=== PATIENT | female | born 1985 | race Two or more races ===

== ENCOUNTER 2018-02-10 18:31 | Emergency (ER) | payer OTHER ==
[~2018-02-10] VITALS: Ht 154.9 cm; Wt 108.9 kg
[2018-02-10 19:00] VITALS: BP 126/84
[2018-02-10] MEDS ORDERED: ZITHROMAX250 MG ORAL (19:31)
[2018-02-10] MEDS ORDERED: IBUPROFEN600 MG ORAL (19:31)
--- NOTE | 2018-02-10 20:57 | Emergency Room Report ---
History of Present Illness General Chief Complaint: Flu Like Symptoms Source: Patient Present Illness HPI The patient is a 32-year-old female presenting for fever, chills, sore throat, cough, fatigue which began this morning. She states that she has used Tylenol which did not help. She states that she had the flu shot last week. 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 She denies any other symptoms including nausea, vomiting, shortness of breath, wheezing, neck pain or stiffness, rash, abdominal pain Allergies: Coded Allergies: No Known Allergies (Unverified , 02/10/18) Patient History Past Medical History: see triage record Pertinent Family History: none Last Menstrual Period: 3 months ago Reviewed Nursing Documentation: PMH: Agreed; PSxH: Agreed Nursing Documentation-PMH Past Medical History: No History, Except For Review of Systems All Other Systems: negative except mentioned in HPI Physical Exam Vital Signs Date Time Temp Pulse Resp B/P (MAP) Pulse Ox O2 Delivery O2 Flow Rate FiO2 02/10/18 18:46 102.9 118 18 126/84 97 Room Air 102.9 Sp02 EP Interpretation: reviewed, normal General Appearance: no apparent distress, alert, GCS 15, non-toxic Head: normocephalic, atraumatic Eyes: bilateral eye normal inspection, bilateral eye PERRL ENT: hearing grossly normal, no angioedema, normal voice, uvula midline, tonsillar swelling, pharyngeal erythema Neck: full range of motion, supple/symm/no masses Respiratory: chest non-tender, lungs clear, normal breath sounds, no wheezing, speaking full sentences Cardiovascular #1: tachycardia Musculoskeletal: back normal, gait/station normal, normal range of motion, non- tender Neurologic: alert, oriented x3, responsive, motor strength/tone normal, sensory intact, speech normal Psychiatric: judgement/insight normal, memory normal, mood/affect normal, no suicidal/homicidal ideation Skin: normal color, no rash, warm/dry, well hydrated Lymphatic: adenopathy - cervical Medical Decision Making PA Attestation Dr. Corbett is my supervising physician. Patient management was discussed with my supervising physician Diagnostic Impression: Primary Impression: Pharyngitis Qualified Codes: J02.9 - Acute pharyngitis, unspecified ER Course The patient is a 32-year-old female presenting for fever, chills, sore throat, cough, fatigue which began this morning Differential diagnosis include but not limited to pharyngitis, sinusitis, AOM, bronchitis, PNA, influenza PE: febrile. NAD HEENT: tonsillar erythema and edema. No exudate. Uvula midline + cervical lymphad Lungs CTA bilat. Tachycardia. No MRG No rash Urine preg neg. Influenza neg Pt given motrin for fever which has helped. She will be [place]ed home with prescription for azithromycin and motrin. ER precautions given Laboratory Tests Test 02/10/18 19:04 Urine HCG, Qualitative Negative (NEGATIVE) Microbiology Date/Time Source Procedure Growth Status 02/10/18 19:04 Nasal Nares Influenza Types A,B Antigen (RAY) - Final Complete Lab Results Impression Urine preg neg. Influenza neg Last Vital Signs Date Time Temp Pulse Resp B/P (MAP) Pulse Ox O2 Delivery O2 Flow Rate FiO2 02/10/18 19:43 99.9 118 18 126/84 97 Room Air 217.2 Status: improved Disposition: HOME, SELF-CARE Condition: Improved Scripts Ibuprofen* (MOTRIN*) 600 Mg Tablet 600 MG ORAL Q6H PRN for For Pain, #30 TAB Prov: BILL CEE 02/10/18 Azithromycin* (ZITHROMAX*) 250 Mg Tablet 250 MG ORAL DAILY, #6 TAB 0 Refills Take two tables once daily for 1 day, then one tablet once daily for 4 days. Prov: BILL CEE. 02/10/18 Referrals: [facility] (PCP) Patient Instructions: Fever, Adult, Pharyngitis Additional Instructions: I discussed my findings with the patient. All questions and concerns have been answered. Treatment and medication compliance have been addressed. I advised the patient that they need to follow up with PMD in 3-5 days. Return to ED if pain remains or worsens, cough worsens or remains, you notice blood in your sputum, you notice wheezing, you experience a fever, or if needed for any reason. Patient verbalized understanding of discharge instructions. BILL CEE Feb 10, 2018 20:57
== END 2018-02-10 19:45 | disposition home or self-care (01) ==
LOC: EMR 19:24
DX: J02.9 Acute pharyngitis, unspecified (principal)
CPT/HCPCS: 81025; 86710; 99283